=== PATIENT | male | born 1950 | race Caucasian/White ===

== ENCOUNTER 2016-08-09 18:14 | Emergency (ER) | payer BC ==
[2016-08-09 18:46] VITALS: BP 133/90
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
== END 2016-08-09 21:13 | disposition home or self-care (01) ==
LOC: ER 18:14
DX: T24.232A Burn of second degree of left lower leg, initial encounter (principal); X08.8XXA Exposure to other specified smoke, fire and flames, initial encounter; Y99.0 Civilian activity done for income or pay
CPT/HCPCS: 99283

== ENCOUNTER → 2016-08-22 | Outpatient (CLI) | payer BC ==
[2016-08-23 09:18] LABS: PROSTATE SPECIFIC ANTIGEN 0.9 ng/mL (0.0-4.0); PSA % FREE 38.9 % (.); PSA FREE 0.35 ng/mL
== END ==
LOC: OD 08:54
PROVIDERS: ATTEND Urology
DX: N40.0 Benign prostatic hyperplasia without lower urinary tract symptoms (principal)
CPT/HCPCS: 36415; 84154